=== PATIENT | female | born 1970 | race African-American/Black ===

== ENCOUNTER 2016-07-26 22:08 | Emergency (ER) | payer OTHER ==
[2016-07-26] MEDS ORDERED: Acetaminophen 325 MG TAB ONE (23:05)
[2016-07-26 23:25] LABS: Bilirubin Negative (Negative); Blood, Urine Trace (Negative); Glucose, Urine (Dipstick) Negative (Negative); Ketone, Urine Negative (Negative); Nitrite Negative (Negative); Protein, Urine (Dipstick) 30 mg/dL (Neg-Trace); Urobilinogen 0.2 mg/dL (0.2-1.0)
[2016-07-26 23:26] LABS: Bacteria/HPF None Seen HPF (None Seen); Squamous Epithelial 0-3 HPF (0-3); WBC/HPF None Seen HPF (0-3)
--- NOTE | 2016-07-27 00:22 | ERRECORD ---
[facility] EMERGENCY RECORD HPI UTI (23:15 MPUR) CHIEF COMPLAINT: Patient presents for evaluation of urinary tract infection signs or symptoms:, dysuria, frequency, urine odor. HISTORIAN: History provided by patient, 2 week of UTI sx, especially urgency. % days ago started having URI sx with headache, congestion, sore throat, Sx hace persisted. In addition lots of stress at work. 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 TIME COURSE: Gradual onset of symptoms, Symptoms are worsening. ASSOCIATED WITH FEMALE: No associated abdominal pain, Associated with chills, Associated with diarrhea, Associated with fever, Associated with nausea, Associated with night sweats. EXACERBATED BY: Patient's condition exacerbated by movement, Patient's condition exacerbated by urination, Patient's condition not exacerbated by walking. RELIEVED BY: Patient's condition relieved by nothing. ROS CONSTITUTIONAL: Historian reports chills, reports malaise. hot flashes, head ache. (23:28 MPUR) EYES: Historian denies eye pain. (23:27 MPUR) ENT: Historian reports dysphonia, reports sinus pain, reports sore throat, reports voice changes, denies rhinorrhea. (23:27 MPUR) CARDIOVASCULAR: Historian denies chest pain. (23:27 MPUR) RESPIRATORY: Historian denies cough. (23:27 MPUR) GI: Historian denies diarrhea, Historian denies vomiting. (23:27 MPUR) MUSCULOSKELETAL: Historian denies arthralgias. (23:27 MPUR) SKIN: Historian denies rash. (23:27 MPUR) NEUROLOGIC: Historian denies seizures. (23:27 MPUR) ENDOCRINE: Historian denies skin changes. (23:27 MPUR) HEMO/LYMPHATIC: Historian denies easy bruising. (23:27 MPUR) PAST MEDICAL HISTORY (22:28 KASA) MEDICAL HISTORY: Flu vaccine not up to date, Tetanus immunization up to date, Pneumococcal vaccine not up to date, Past medical history includes history of obesity. Pre hypertension. FEMALE SURGICAL HISTORY: Surgical history of tubal ligation. PSYCHIATRIC HISTORY: No previous psychiatric history. SOCIAL HISTORY: Lives at home, with family, Patient denies alcohol use, Patient denies drug use, Patient has no smoking history. FAMILY HISTORY: Notes: HTN, Renal Disease. &a-1R&a+25V*p+0X*[id number]*c202B*c15G*c2P*p-0X&a-25V&a+1R Name: Dylan Good : 1970 F45 MedRec: [id number] AcctNum: [id number] Prepared: MonJul 27, 2016 01:21 by Interface Page 1 of 3 pMD [facility] EMERGENCY RECORD KNOWN ALLERGIES No Known Drug Allergies CURRENT MEDICATIONS (22:24 KASA) meloxicam: TABLET : Strength - 7.5 mg : ORAL Patient Dose: unknown once a day.for knee pain. VITAL SIGNS VITAL SIGNS: BP: 150/93, Pulse: 98, Resp: 20, Temp: 99.3 (Oral), Pain: 8 (Intermittent), O2 sat: 99 on Room Air, Time: 07/26/2016 22:21. (22:21 KASA) BP: 141/83, Pulse: 78, Resp: 20, Pain: 6, O2 sat: 100 on Room Air, Time: 07/26/2016 23:23. (23:23 KASA) PHYSICAL EXAM CONSTITUTIONAL: Vital signs reviewed. (23:27 MPUR) HEAD: Head exam included findings of head atraumatic. (23:27 MPUR) EYES: Eye exam included findings of eyelids normal to inspection, Sclera normal. (23:27 MPUR) ENT: Nose exam normal, no nasal deformity, mucous membranes moist and congested. (23:27 MPUR) NECK: Neck exam included findings of normal range of motion, no meningeal signs, Neck supple, Trachea midline, no contusions. (23:27 MPUR) RESPIRATORY CHEST: Respiratory exam included findings of no respiratory distress, Breath sounds clear, no increased work of breathing, rate nl. (23:27 MPUR) CARDIOVASCULAR: Cardiovascular exam included findings of heart rate regular rate and rhythm, Heart sounds normal. (23:27 MPUR) ABDOMEN FEMALE: Abdominal exam included findings of abdomen tender, to the suprapubic region, mild intensity, Bowel sounds, hypoactive, no distension. (23:31 MPUR) LOWER EXTREMITY: no cyanosis, no edema. (23:27 MPUR) NEURO: Speech normal, Memory normal, alert, moving all extremities well. (23:27 MPUR) SKIN: Skin exam included findings of skin warm, dry, no rash. (23:27 MPUR) PSYCHIATRIC: Normal affect, Recent memory normal. (23:27 MPUR) MEDICATION ADMINISTRATION SUMMARY Drug Name: acetaminophen oral, Dose Ordered: 3 x 325 mg tab(s), Route: Oral, Status: Given, Time: 23:08 07/26/2016, Detailed record available in Medication Service section. &a-1R&a+25V*p+0X*[id number]*c202B*c15G*c2P*p-0X&a-25V&a+1R Name: Dylan Good : 1970 F45 MedRec: [id number] AcctNum: [id number] Prepared: MonJul 27, 2016 01:21 by Interface Page 2 of 3 pMD [facility] EMERGENCY RECORD DOCTOR NOTES TEXT: I have reviewed and agree with nurse's past medical, family, and social history as documented on chart. Pt's vital signs have been reviewed. (23:27 MPUR) Findings consistent with viral syndrome. In addition pt evidently under significant stress today at work. Urine maximally concentrated. Discussed treatment and need to increase fluids. (MonJul 27, 2016 01:12 MPUR) PROBLEM LIST No recorded problems DIAGNOSIS (23:48 MPUR) FINAL: PRIMARY: Viral syndrome. PRESCRIPTION (23:54 MPUR) Maxalt: TABLET : 10 mg : ORAL : Quantity: 1 Unit: Sublingual Route: ORAL Schedule: every 4 hours prn Dispense: 12 Unit: tab(s) May substitute. Refills: No Refills . NOTES: prn migraine headache No Refills. DISPOSITION PATIENT: Disposition Type: Discharge, Disposition: *Discharge Home. (23:48 MPUR) Patient left the department. (MonJul 27, 2016 00:13 SHOBHA) Chambers: SHOBHA=MARISOL Pérez, Sabina MPUR=MD Carolynn, Harpreet &a-1R&a+25V*p+0X*[id number]*c202B*c15G*c2P*p-0X&a-25V&a+1R Name: Dylan Good : 1970 F45 MedRec: [id number] AcctNum: [id number] Prepared: MonJul 27, 2016 01:21 by Interface Page 3 of 3 pMD MTDD
--- NOTE | 2016-07-27 00:24 | PICIS ---
[facility] EMERGENCY RECORD TRIAGE (22:23 KASA) TRIAGE NOTES: Headache for the past 4 days, sore throat that started today, "felt warm earlier but I don't know if I have a fever". (22:23 KASA) PATIENT: NAME: Dylan Good, AGE: 45, GENDER: female, : Sun 1970, TIME OF GREET: MonJul 26, 2016 22:10, PREFERRED LANGUAGE: Martiniquais, ETHNICITY: Not or , ECODE BILLING MAP: [facility], SSN: [id number], Zip Code: [address], KG WEIGHT: [phone], PHONE: , , , PERSON ID: [id number], PCP: None. (22:23 KASA) COMPLAINT: C/O ROBISON 4-5 DAYS,SORE THROAT,FEVERISH. (22:23 KASA) ADMISSION: URGENCY: 4 Non Urgent, ADMISSION SOURCE: Home, TRANSPORT: CAR, BED: ER -03. (22:23 KASA) ASSESSMENT: Assessment: throat red, injected, Symptoms began 07/26/2016, Additional Triage notes: States. (22:28 KASA) PAIN: Patient complains of pain described as, throbbing, on a scale 0-10 patient rates pain as 8, Location Headache, Pain is intermittent, Onset was 07/23/2016, Aggravating factors:, Aggravating factors include getting upset, No relieving factors, Notes: states she woke up this morning and it was throbbing, states pain comes and goes, Starts in the worship region and radiates back. (22:28 KASA) SIRS SCORING: Heart Rate 55-109 (0), Temp range 96.8-101.1 (0), respiratory rate 12-24 (0), Mental Status altered: no (0). (22:28 KASA) TRIAGE SCREENING: Patient denies suicidal ideation, Patient denies presence of domestic violence. (22:28 KASA) TREATMENTS IN PROGRESS: Treatments given Prehospital: [facility] Migraine 11 am; "tension headache OTC medicine" 2pm. (22:28 KASA) PROVIDERS: TRIAGE NURSE: Sabina Pérez RN. (22:23 KASA) VITAL SIGNS: BP 150/93, Pulse 98, Resp 20, Temp 99.3, (Oral), Pain 8, (Intermittent), O2 Sat 99, on Room Air, Time 07/26/2016 22:21. (22:21 KASA) PREVIOUS VISIT ALLERGIES: No Known Drug Allergies. (22:23 KASA) No Known Drug Allergies. (22:28 KASA) KNOWN ALLERGIES No Known Drug Allergies CURRENT MEDICATIONS (22:24 KASA) meloxicam: TABLET : Strength - 7.5 mg : ORAL Patient Dose: unknown once a day.for knee pain. VITAL SIGNS VITAL SIGNS: BP: 150/93, Pulse: 98, Resp: 20, Temp: 99.3 (Oral), Pain: 8 (Intermittent), O2 sat: 99 on Room Air, Time: 07/26/2016 22:21. (22:21 KASA) &a-1R&a+25V*p+0X*u0655A*c202B*c15G*c2P*p-0X&a-25V&a+1R Name: Dylan Good : 1970 F45 MedRec: [id number] AcctNum: [id number] Prepared: MonJul 27, 2016 01:27 by Interface Page 1 of [address] [facility] EMERGENCY RECORD BP: 141/83, Pulse: 78, Resp: 20, Pain: 6, O2 sat: 100 on Room Air, Time: 07/26/2016 23:23. (23:23 KASA) NURSING ASSESSMENT: ENT (22:28 KASA) CONSTITUTIONAL: Patient arrives ambulatory, Gait steady, History obtained from patient, Patient appears, uncomfortable, Patient cooperative, Patient alert, Oriented to person, place and time, Skin warm, Skin dry, Skin normal in color, Mucous membranes pink, Mucous membranes moist, Patient is well-groomed, Patient complains of Sore throat, ROBISON for the last 4 days, Headache for the past 4 days, sore throat that started today, "felt warm earlier but I don't know if I have a fever". ENT: Mouth and throat assessment findings include mouth, Back of throat red, injected, Mucous membranes pink, and moist, Able to swallow, Speech normal. RESPIRATORY/CHEST: Respiratory assessment findings include respiratory effort easy, Respirations regular, Conversing normally, Neck and chest exam findings include trachea midline, Chest expansion equal, Chest movement symmetrical, no signs of distress, Associated with cough, non-productive, no associated fever, Notes: "feels like being getting strangled" "like something is going down the wrong way" has to drink something to clear it. SAFETY: Side rails up, Cart/Stretcher in lowest position, Call light within reach, Hospital ID band on. NURSING ASSESSMENT: HEADACHE (22:32 KASA) HEADACHE: history of migraines, no associated aura, no associated nausea, no associated vomiting, Associated with phonophobia, Precipitating factors include stress, Notes: States she saw blurry spots, then the headache came on. Dizziness -feels like she is spinning. NEURO: Pupils equally round and reactive to light, Able to close eyes, Face symmetrical, no facial droop, no swelling, GCS:, Eye opening: (4) - Spontaneous, Verbal: (5) - Oriented/conversive, Motor: (6) - Obeys commands/Spontaneous, GCS Total: 15, Hand grasps equal, Upper extremity strength strong, no numbness to upper extremities. SAFETY: Side rails up, Cart/Stretcher in lowest position, Call light within reach, Hospital ID band on. NURSING PROCEDURE: DISCHARGE NOTE (23:58 KASA) DISCHARGE: Patient discharged to home, ambulating without assistance, driving self, unaccompanied, Summary of Care printed/ provided, Discharge instructions given to patient, Simple or moderate discharge teaching performed, . Educated and provided handout regarding diagnosis of: Viral Syndrome Follow up with PCP in 2-4 days. May return to work in 2 days., Prescriptions given and &a-1R&a+25V*p+0X*k9228U*c202B*c15G*c2P*p-0X&a-25V&a+1R Name: Dylan Good Claudy : 1970 F45 MedRec: [id number] AcctNum: [id number] Prepared: MonJul 27, 2016 01:27 by Interface Page 2 of [address] [facility] EMERGENCY RECORD instructions on side effects given, Name of prescription(s) given: Albin, Above person(s) verbalized understanding of discharge instructions and follow-up care, Patient treated and evaluated by physician. BELONGINGS: Belongings and valuables with patient upon arrival to the Emergency Department include:, Belongings and valuables with patient at time of discharge include:, Belongings remain with patient, Valuables remain with patient. SAFETY: Side rails up, Cart/Stretcher in lowest position, Call light within reach, Hospital ID band on. NURSING PROCEDURE: ENT (22:40 KASA) PATIENT IDENTIFIER: Patient actively involved in identification process, Patient's identity verified by patient stating name, Patient's identity verified by patient stating date. ENT: Throat swab collected, labeled in the presence of the patient and sent to the lab for testing of, rapid strep, collected by MARISOL Muhammad. SAFETY: Side rails up, Cart/Stretcher in lowest position, Call light within reach, Hospital ID band on. NURSING PROCEDURE: NURSE NOTES NURSES NOTES: Notes: Upon entering the room patient sitting up in bed, talking cell phone. Daughter at bedside. (23:06 KASA) Patient examined by physician. (23:12 KASA) Patient assisted to bathroom with steady gait, Patient in no apparent distress. (23:16 KASA) NURSING PROCEDURE: TEACHING (23:54 KASA) TEACHING: Simple or moderate teaching performed, by MARISOL Dumont, Viral Syndrome [Adult] A viral illness may cause a number of symptoms. The symptoms depend on the part of the body that the virus affects. If it settles in the nose/throat/lungs, it may cause cough, sore throat, congestion and sometimes headache. If it settles in the stomach and intestinal tract, it may cause vomiting and diarrhea. Sometimes, it causes vague symptoms like "aching all over," feeling tired, loss of appetite, or fever. A viral illness usually lasts from 1-2 weeks and sometimes longer. In some cases, a more serious infection can look like a viral syndrome in the first few days of the illness. Repeat exams and further tests are needed to know the difference. Therefore, it is important to watch for the warning signs listed below. Home Care: If symptoms are severe, rest at home for the first 2-3 days. Stay away from cigarette smoke (yours or other peoples). You may use Tylenol (acetaminophen) or ibuprofen (Motrin, Advil) for fever, muscle aching and headache, unless another medicine was prescribed for this. [ NOTE : If you have chronic liver or kidney disease or ever had a stomach ulcer or GI bleeding, talk with your &a-1R&a+25V*p+0X*q6401D*c202B*c15G*c2P*p-0X&a-25V&a+1R Name: Dylan Good : 1970 F45 MedRec: [id number] AcctNum: [id number] Prepared: MonJul 27, 2016 01:27 by Interface Page 3 of [address] [facility] EMERGENCY RECORD doctor before using these medicines.] (Aspirin should never be used in anyone under 18 years of age who is ill with a fever. It may cause severe liver damage.) Your appetite may be poor, so a light diet is fine. Avoid dehydration by drinking 8-12 eight-ounce glasses of fluids per day. This may include water, orange juice and lemonade, apple, grape and cranberry juice, clear fruit drinks, electrolyte replacement and sports drinks, decaffeinated teas and coffee. Aant-zcc-ymwchgg remedies will not shorten the length of the illness but may be helpful for the following symptoms: cough (Robitussin DM); sore throat (Chloraseptic lozenges or spray); nasal and sinus congestion (Actifed or Sudafed). [NOTE: Do not use decongestants if you have high blood pressure.]. Follow Up with your doctor as advised if you do not improve over the next week. Get Prompt Medical Attention if any of the following occur: Cough with lots of colored sputum (mucus) or blood in your sputum Chest pain, shortness of breath, wheezing or difficulty breathing Severe headache; face, neck or ear pain Severe constant right-sided lower abdominal pain Continued vomiting (cant keep liquids down) Frequent diarrhea (more than 5 times a day); blood (red or black color) or mucus in diarrhea Feeling weak, dizzy, or like you are going to faint Extreme thirst Fever of 100.4F (38C) oral or higher, not better with fever medication Convulsion PATIENT &/OR CAREGIVER VERBALIZED UNDERSTANDING OF THE TEACHING PROVIDED AND WAS ABLE TO DEMONSTRATE TEACHING EVIDENCED BY TEACH BACK. Simple or moderate teaching performed, by MARISOL Muhammad, Dehydration [Adult] Dehydration occurs when the body loses too much fluid. This may be the result of vomiting a lot or from diarrhea, profuse sweating or a high fever. It may also occur if you dont drink enough fluid when youre sick. Misuse of diuretics (water pills) can also be a cause. Symptoms include thirst and feeling dizzy, weak, fatigued, or very drowsy. The diet described below is usually enough to treat most cases. Sometimes medicine is also needed. Home Care: Adults should drink at least 12 eight-ounce glasses of fluid per day to correct dehydration. The fluid may include water, orange juice and lemonade, apple, grape and cranberry juice, clear fruit drinks, electrolyte replacement and sports drinks, and teas and coffee without caffeine. If you have fever, muscle aching or headache from a viral syndrome, you may use Tylenol (acetaminophen) or ibuprofen (Motrin, Advil), unless another medicine was prescribed for this. [ NOTE : If you have chronic liver &a-1R&a+25V*p+0X*d7562P*c202B*c15G*c2P*p-0X&a-25V&a+1R Name: Dylan Good : 1970 F45 MedRec: [id number] AcctNum: [id number] Prepared: MonJul 27, 2016 01:27 by Interface Page 4 of [address] [facility] EMERGENCY RECORD or kidney disease or ever had a stomach ulcer or GI bleeding, talk with your doctor before using these medicines.] (If under 18 years old, do not use aspirin for fever. There is a chance of severe liver injury.) Follow Up with your doctor or this facility if you do not improve over the next 24-48 hours. Get Prompt Medical Attention if any of the following occur: Continued vomiting (cant keep liquids down) Frequent diarrhea (more than 5 times a day); blood (red or black color) or mucus in diarrhea Blood in vomit or stool Swollen abdomen or increasing abdominal pain Weakness, dizziness or fainting Unusually drowsy or confused Reduced urine output or extreme thirst Fever of 100.4F (38C) oral or higher, not better with fever medication PATIENT &/OR CAREGIVER VERBALIZED UNDERSTANDING OF THE TEACHING PROVIDED AND WAS ABLE TO DEMONSTRATE TEACHING EVIDENCED BY TEACH BACK. Simple or moderate teaching performed, by MARISOL Muhammad, Prescriptions given and instructions on side effects given, Name of prescription(s) given: MAXALT (RIZATRIPTAN) is used to treat migraines with or without aura. An aura is a strange feeling or visual disturbance that warns you of an attack. It is not used to prevent migraines. SIDE EFFECTS THAT YOU SHOULD REPORT TO YOUR DOCTOR OR HEALTH WOOL FLEECE SORTER SOON POSSIBLE: allergic reactions like skin rash, itching or hives, swelling of the face, lips, or tongue, FAST, SLOW, OR IRREGULAR HEART BEAT, increased or decreased blood pressure, seizures, severe stomach pain and cramping, bloody diarrhea, signs and symptoms of a blood clot such as breathing problems; changes in vision; chest pain; severe, sudden headache; pain, swelling, warmth in the leg; trouble speaking; sudden numbness or weakness of the face, arm or leg, tingling, pain, or numbness in the face, hands, or feet. SIDE EFFECTS THAT USUALLY DO NOT REQUIRE MEDICAL ATTENTION (REPORT TO YOUR DOCTOR OR HEALTH WOOL FLEECE SORTER IF THEY CONTINUE OR ARE BOTHERSOME): drowsiness, dry mouth, feeling warm, flushing, or redness of the face, headache, muscle cramps, pain, nausea, vomiting, unusually weak or tired., Above person(s) verbalized understanding of teaching given, Notes: Additional information about the medication you were given and/or prescribed. Only take this medicine for a migraine headache. Take it if you get warning symptoms or at the start of a migraine attack. It is not for regular use to prevent migraine attacks. You may get DROWSY OR DIZZY. Do not drive, use machinery, or do anything that needs mental alertness until you know how this medicine affects you. To reduce dizzy or fainting spells, do not sit or stand up quickly, especially if you are an older patient. Alcohol can increase drowsiness, dizziness and flushing. AVOID ALCOHOLIC DRINKS. SMOKING CIGARETTES MAY INCREASE THE RISK OF HEART-RELATED SIDE &a-1R&a+25V*p+0X*q7760I*c202B*c15G*c2P*p-0X&a-25V&a+1R Name: Dylan Good : 1970 F45 MedRec: [id number] AcctNum: [id number] Prepared: MonJul 27, 2016 01:27 by Interface Page 5 of 11 pMD [facility] EMERGENCY RECORD EFFECTS FROM USING THIS MEDICINE. IF YOU TAKE MIGRAINE MEDICINES FOR 10 OR MORE DAYS A MONTH, YOUR MIGRAINES MAY GET WORSE. KEEP A DIARY OF HEADACHE DAYS AND MEDICINE USE. CONTACT YOUR HEALTHCARE PROFESSIONAL IF YOUR MIGRAINE ATTACKS OCCUR MORE FREQUENTLY. How to take: Take this medicine by mouth. Follow the directions on the prescription label. This medicine is taken at the first symptoms of a migraine. It is not for everyday use. Leave the tablet in the foil package until you are ready to take it. Do not push the tablet through the blister pack. Peel open the blister pack with dry hands and place the tablet on your tongue. The tablet will dissolve rapidly and be swallowed in your saliva. It is not necessary to drink any water to take this medicine. If your migraine headache returns after one dose, you can take another dose as directed. You must LEAVE AT LEAST 2 HOURS BETWEEN DOSES, and DO NOT TAKE MORE THAN 30 MG TOTAL IN 24 HOURS. If there is no improvement at all after the first dose, do not take a second dose without talking to your doctor or health rn patient care. DO NOT TAKE YOUR MEDICINE MORE OFTEN THAN DIRECTED. Talk to your calciner operator regarding the use of this medicine in children. While this drug may be prescribed for children as young as 6 years for selected conditions, precautions do apply. Missed dose: This does not apply; this medicine is not for regular use. Keep out of the reach of children. Store at room temperature between 15 and 30 degrees C (59 and 86 degrees F). Protect from light and moisture. Throw away any unused medicine after the expiration date. Let your health care provided know if you have any of these conditions: bowel disease or colitis diabetes family history of heart disease fast or irregular heart beat heart or blood vessel disease, angina (chest pain), or previous heart attack high blood pressure high cholesterol history of stroke, transient ischemic attacks (TIAs or mini-strokes), or intracranial bleeding kidney or liver disease overweight poor circulation postmenopausal or surgical removal of uterus and ovaries an unusual or allergic reaction to rizatriptan, other medicines, foods, dyes, or preservatives or trying to get breast-feeding What may interact with this medicine? Do not take this medicine with any of the following medicines: &a-1R&a+25V*p+0X*l4892N*c202B*c15G*c2P*p-0X&a-25V&a+1R Name: Dylan Good : 1970 F45 MedRec: [id number] AcctNum: [id number] Prepared: MonJul 27, 2016 01:27 by Interface Page 6 of [address] [facility] EMERGENCY RECORD amphetamine, dextroamphetamine or cocaine dihydroergotamine, ergotamine, ergoloid mesylates, methysergide, or ergot-type medication - do not take within 24 hours of taking rizatriptan feverfew MAOIs like Carbex, Eldepryl, Marplan, Nardil, and Parnate - do not take rizatriptan within 2 weeks of stopping MAOI therapy. other migraine medicines like almotriptan, eletriptan, naratriptan, sumatriptan, zolmitriptan - do not take within 24 hours of taking rizatriptan tryptophan This medicine may also interact with the following medications: medicines for mental depression, anxiety or mood problems propranolol PATIENT &/OR CAREGIVER VERBALIZED UNDERSTANDING OF THE TEACHING PROVIDED AND WAS ABLE TO DEMONSTRATE TEACHING EVIDENCED BY TEACH BACK. ORDER DETAILS Order Name: Strep Group A Screen, Status: Active, Time: 22:42 07/26/2016, User: SHOBHA, - Ordered for: MD Pradhan Marcus, - Entered by: MARISOL Pérez Kathy - Tue Jul 26, 2016 22:42, - Quantity: 1, Order Name: Urinalysis with Microscopic, Status: Active, Time: 23:15 07/26/2016, User: DEYSI, - Ordered for: MD Pradhan Marcus, - Entered by: MD Pradhan Marcus - Tue Jul 26, 2016 23:15, - Quantity: 1. MEDICATION ADMINISTRATION SUMMARY Drug Name: acetaminophen oral, Dose Ordered: 3 x 325 mg tab(s), Route: Oral, Status: Given, Time: 23:08 07/26/2016, Detailed record available in Medication Service section. MEDICATION SERVICE (23:08 DEYSI) acetaminophen oral: Order: acetaminophen oral (acetaminophen) - Dose: 3 x 325 mg tab(s) : Oral Schedule: Now Ordered by: Harpreet Pradhan MD Entered by: Harpreet Pradhan MD Jul 26, 2016 22:58 , Acknowledged by: Sabina Pérez RN Jul 26, 2016 23:08 Documented as given by: Sabina Pérez RN Jul 26, 2016 23:08 Patient, Medication, Dose, Route and Time verified prior to administration. Amount given: 975 mg, Site: Medication administered P.O., Correct patient, time, route, dose and medication confirmed prior to administration, Patient advised of actions and side-effects prior to &a-1R&a+25V*p+0X*d9497N*c202B*c15G*c2P*p-0X&a-25V&a+1R Name: Dylan Good : 1970 F45 MedRec: [id number] AcctNum: [id number] Prepared: MonJul 27, 2016 01:27 by Interface Page 7 of [address] [facility] EMERGENCY RECORD administration, Allergies confirmed and medications reviewed prior to administration, Patient in position of comfort, Side rails up, Cart in lowest position, Family at bedside. HPI UTI (23:15 MPUR) CHIEF COMPLAINT: Patient presents for evaluation of urinary tract infection signs or symptoms:, dysuria, frequency, urine odor. HISTORIAN: History provided by patient, 2 week of UTI sx, especially urgency. % days ago started having URI sx with headache, congestion, sore throat, Sx hace persisted. In addition lots of stress at work. 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 TIME COURSE: Gradual onset of symptoms, Symptoms are worsening. ASSOCIATED WITH FEMALE: No associated abdominal pain, Associated with chills, Associated with diarrhea, Associated with fever, Associated with nausea, Associated with night sweats. EXACERBATED BY: Patient's condition exacerbated by movement, Patient's condition exacerbated by urination, Patient's condition not exacerbated by walking. RELIEVED BY: Patient's condition relieved by nothing. ROS CONSTITUTIONAL: Historian reports chills, reports malaise. hot flashes, head ache. (23:28 MPUR) EYES: Historian denies eye pain. (23:27 MPUR) ENT: Historian reports dysphonia, reports sinus pain, reports sore throat, reports voice changes, denies rhinorrhea. (23:27 MPUR) CARDIOVASCULAR: Historian denies chest pain. (23:27 MPUR) RESPIRATORY: Historian denies cough. (23:27 MPUR) GI: Historian denies diarrhea, Historian denies vomiting. (23:27 MPUR) MUSCULOSKELETAL: Historian denies arthralgias. (23:27 MPUR) SKIN: Historian denies rash. (23:27 MPUR) NEUROLOGIC: Historian denies seizures. (23:27 MPUR) ENDOCRINE: Historian denies skin changes. (23:27 MPUR) HEMO/LYMPHATIC: Historian denies easy bruising. (23:27 MPUR) PAST MEDICAL HISTORY (: KASA) MEDICAL HISTORY: Flu vaccine not up to date, Tetanus immunization up to date, Pneumococcal vaccine not up to date, Past medical history includes history of obesity. Pre hypertension. FEMALE SURGICAL HISTORY: Surgical history of tubal ligation. PSYCHIATRIC HISTORY: No previous psychiatric history. SOCIAL HISTORY: Lives at home, with family, Patient denies &a-1R&a+25V*p+0X*c8499H*c202B*c15G*c2P*p-0X&a-25V&a+1R Name: Dylan Good : 1970 F45 MedRec: [id number] AcctNum: [id number] Prepared: MonJul 27, 2016 01:27 by Interface Page 8 of [address] [facility] EMERGENCY RECORD alcohol use, Patient denies drug use, Patient has no smoking history. FAMILY HISTORY: Notes: HTN, Renal Disease. PHYSICAL EXAM CONSTITUTIONAL: Vital signs reviewed. (23:27 MPUR) HEAD: Head exam included findings of head atraumatic. (23:27 MPUR) EYES: Eye exam included findings of eyelids normal to inspection, Sclera normal. (23:27 MPUR) ENT: Nose exam normal, no nasal deformity, mucous membranes moist and congested. (23:27 MPUR) NECK: Neck exam included findings of normal range of motion, no meningeal signs, Neck supple, Trachea midline, no contusions. (23:27 MPUR) RESPIRATORY CHEST: Respiratory exam included findings of no respiratory distress, Breath sounds clear, no increased work of breathing, rate nl. (23:27 MPUR) CARDIOVASCULAR: Cardiovascular exam included findings of heart rate regular rate and rhythm, Heart sounds normal. (23:27 MPUR) ABDOMEN FEMALE: Abdominal exam included findings of abdomen tender, to the suprapubic region, mild intensity, Bowel sounds, hypoactive, no distension. (23:31 MPUR) LOWER EXTREMITY: no cyanosis, no edema. (23:27 MPUR) NEURO: Speech normal, Memory normal, alert, moving all extremities well. (23:27 MPUR) SKIN: Skin exam included findings of skin warm, dry, no rash. (23:27 MPUR) PSYCHIATRIC: Normal affect, Recent memory normal. (23:27 MPUR) LAB INTERPRETATION (23:27 MPUR) INTERPRETATION: No significant lab abnormalities except as noted above. EVENTS TRANSFER: Triage to Emergency Emergency Room -03. (MonJul 26, 2016 22:23 KASA) Removed from Emergency Emergency Room -03. (MonJul 27, 2016 00:13 KASA) DOCTOR NOTES TEXT: I have reviewed and agree with nurse's past medical, family, and social history as documented on chart. Pt's vital signs have been reviewed. (23:27 MPUR) Findings consistent with viral syndrome. In addition pt evidently under significant stress today at work. Urine maximally concentrated. Discussed treatment and need to increase fluids. (MonJul 27, 2016 01:12 MPUR) &a-1R&a+25V*p+0X*w9221D*c202B*c15G*c2P*p-0X&a-25V&a+1R Name: Dylan Good : 1970 F45 MedRec: [id number] AcctNum: [id number] Prepared: MonJul 27, 2016 01:27 by Interface Page 9 of [address] [facility] EMERGENCY RECORD PROBLEM LIST No recorded problems DIAGNOSIS (23:48 MPUR) FINAL: PRIMARY: Viral syndrome. DISPOSITION PATIENT: Disposition Type: Discharge, Disposition: *Discharge Home. (23:48 MPUR) Patient left the department. (MonJul 27, 2016 00:13 KASA) INSTRUCTION (23:51 MPUR) DISCHARGE: VIRAL SYNDROME (ADULT), DEHYDRATION (6Y-ADULT). FOLLOWUP: [facility], Clinic, [address] [facility], [facility] , . SPECIAL: Increase fluids intake. Tylenol or Advil for Pain or fever. Rest tomorrow. Follow-up with your PCP in 2-4 days Return to work in 2 days. PRESCRIPTION (23:54 MPUR) Maxalt: TABLET : 10 mg : ORAL : Quantity: 1 Unit: Sublingual Route: ORAL Schedule: every 4 hours prn Dispense: 12 Unit: tab(s) May substitute. Refills: No Refills . NOTES: prn migraine headache No Refills. IMAGING (MonJul 27, 2016 01:16 KASA) *DISCHARGE INSTRUCTIONS RECEIPT: Image captured from scanner. *SUPPLY CHARGE SHEET: Image captured from scanner. ADMIN (MonJul 27, 2016 01:14 MPUR) DIGITAL SIGNATURE: MD Pradhan Marcus. RESULTS (23:32 MPUR) LABORATORY: Urinalysis with Microscopic Collection DT: MonJul 26, 2016 23:22, Color Yellow , Range (Yellow), Clarity Clear , Range (Clear), *Specific Jackson, Urine 1.040 - H , Range (1.002-1.036), pH, Urine 6.0 , Range (5.0-9.0), Leukocyte Negative , Range (Negative), Nitrite Negative , Range (Negative), *Protein, Urine (Dipstick) 30 - H mg/dL, Range (Neg-Trace), Glucose, Urine (Dipstick) Negative mg/dL, Range (Negative), Ketone, Urine Negative mg/dL, Range (Negative), Urobilinogen 0.2 mg/dL, Range (0.2-1.0), &a-1R&a+25V*p+0X*r8216G*c202B*c15G*c2P*p-0X&a-25V&a+1R Name: Dylan Good : 1970 F45 MedRec: [id number] AcctNum: [id number] Prepared: MonJul 27, 2016 01:27 by Interface Page 10 of [address] [facility] EMERGENCY RECORD Bilirubin Negative , Range (Negative), *Blood, Urine Trace - H , Range (Negative), RBC/HPF 4-6 HPF, Range (0-3), WBC/HPF None Seen HPF, Range (0-3), Squamous Epithelial 0-3 HPF, Range (0-3), Bacteria/HPF None Seen HPF, Range (None Seen). MICROBIOLOGY: Strep Group A Screen: [id number] Collection DT: [place] Jul 26, 2016 22:46, See comment below , @ ER ROOM#: [id number] Source: Throat Spec Desc: PENDING, Strep A Negative CDC recommends , confirmation by , culture on all , negative , Strep negative line 1 Group A , Streptococcus rapid , screens. Please , order , Strep negative line 2 a throat culture if , clinically , indicated. , Rapid Strep Screen:Throat Negative . Chambers: SHOBHA=MARISOL Pérez, Sabina JO=MD Carolynn, Harpreet &a-1R&a+25V*p+0X*p2241Y*c202B*c15G*c2P*p-0X&a-25V&a+1R Name: Dylan Good : 1970 F45 MedRec: [id number] AcctNum: [id number] Prepared: MonJul 27, 2016 01:27 by Interface Page 11 of 11 pMD MTDD
== END 2016-07-26 23:58 | disposition home or self-care (01) ==
LOC: NAV ERS 22:08
DX: B34.9 Viral infection, unspecified (principal)
CPT/HCPCS: 81001; 87430; 99283

== ENCOUNTER 2016-08-23 15:10 | Emergency (ER) | payer OTHER ==
--- NOTE | 2016-08-23 16:13 | ERRECORD ---
[facility] EMERGENCY RECORD HPI URI (15:58 AGRE) CHIEF COMPLAINT: Patient presents for evaluation of nasal congestion, Patient presents for evaluation of cough. HISTORIAN: History provided by patient, NASAL CONGESTION AND COUGH FOR ONE WEEK. SEEN IN ED AND TOLD URI AND IT WOULD RUN ITS COURSE. HOWEVER IS WORST, COUGHING AND UNABLE TO SLEEP, GREEN NASAL DRAINAGE. TAKING NYQUIL FOR ONE WEEK AND NOT GETTING BETTER. NO FEVER OR CHILLS. NO OTHER SYMPTOMS. LOCATION: No localizing symptoms. QUALITY: Pain is dull in nature, described as aching. SEVERITY: Maximum severity of symptoms mild, Currently there are no symptoms. TIME COURSE: Gradual onset of symptoms, Symptoms are worsening. ASSOCIATED WITH: No associated chest pain, No associated chills, No associated fever, No associated headache, No associated neck pain, No associated shortness of breath, Denies any other complaints. EXACERBATED BY: Patient's condition exacerbated by nothing. RELIEVED BY: Patient's condition relieved by nothing. ROS (15:59 AGRE) CONSTITUTIONAL: Historian denies chills, denies fever, denies lethargy, denies malaise. EYES: Historian denies eye pain, denies eye redness. ENT: Historian denies otalgia, denies otorrhea, reports rhinorrhea, denies sinus pain, denies sore throat. CARDIOVASCULAR: Historian denies chest pain, denies dyspnea on exertion. RESPIRATORY: Historian denies cough, denies shortness of breath. GI: Historian denies abdominal pain, denies nausea, denies vomiting. MUSCULOSKELETAL: Historian denies back pain, denies neck pain. SKIN: Negative skin review of systems, Historian denies skin changes, denies skin lesions. NEUROLOGIC: Historian denies headache, denies mental status changes. PSYCHIATRIC: Negative psychiatric review of systems, Historian denies anxiety. PAST MEDICAL HISTORY (15:32 EPIE) MEDICAL HISTORY: Notes: Anemia, Past medical history includes history of hypertension, Flu vaccine not up to date, Tetanus immunization up to date, Pneumococcal vaccine not up to date, Past medical history includes history of obesity. FEMALE SURGICAL HISTORY: Surgical history of tubal ligation. PSYCHIATRIC HISTORY: no history of suicidal ideations, No history of homicidal ideations, No previous psychiatric history. SOCIAL HISTORY: Lives at home, with family, Patient denies alcohol use, Patient denies drug use, Patient has no smoking &a-1R&a+25V*p+0X*u0590X*c202B*c15G*c2P*p-0X&a-25V&a+1R Name: Dylan Good : 1970 F45 MedRec: [id number] AcctNum: [id number] Prepared: MonAug 23, 2016 16:08 by Interface Page 1 of 3 pMD [facility] EMERGENCY RECORD history. FAMILY HISTORY: Notes: HTN, Renal Disease. KNOWN ALLERGIES No Known Drug Allergies CURRENT MEDICATIONS (15:31 EPIE) meloxicam: TABLET : Strength - 7.5 mg : ORAL Patient Dose: unknown once a day.for knee pain. amLODIPine: TABLET : Strength - 10 mg : ORAL Patient Dose: UNK. VITAL SIGNS (15:28 EPIE) VITAL SIGNS: BP: 141/91, Pulse: 91, Resp: 20 (Non-Labored), Temp: 98.4 (Oral), O2 sat: 98 on Room Air, Time: 08/23/2016 15:28. PHYSICAL EXAM CONSTITUTIONAL: Vital signs reviewed, Patient afebrile, Patient appears non toxic, Patient appears pain free, Patient alert and oriented to person, place and time, NURSES NOTES REVIEWED. (16:00 AGRE) HEAD: Head exam included findings of head atraumatic, normocephalic. (16:00 AGRE) EYES: Eye exam included findings of eyelids normal to inspection, Extraocular muscles intact, Conjunctiva normal, Sclera normal. (16:00 AGRE) ENT: Ear exam included findings of, left external ear normal, right external ear normal, tympanic membrane injected on the left, tympanic membrane normal on the right, Nose exam normal, No turbinate mucosa discharge, ERYTHEMA AND SWELLING OF THE TURBINATES BILATERALLY, Pharynx exam normal, Uvula exam normal, Tonsil exam normal, Mouth exam normal, Maxillary sinuses with, tenderness bilaterally. (16:00 AGRE) NECK: Neck exam included findings of normal range of motion, no meningeal signs, no cervical adenopathy, no tenderness. (16:00 AGRE) RESPIRATORY CHEST: Respiratory exam included findings of no respiratory distress, Breath sounds clear, No wheezing, No rales, No rhonchi, Breath sounds not diminished, Chest exam included findings of chest movement symmetrical. (16:00 AGRE) CARDIOVASCULAR: Cardiovascular assessment normal, Cardiovascular exam included findings of heart rate regular rate and rhythm, Heart sounds normal. (16:01 AGRE) BACK: Back exam included findings of normal inspection, range of motion normal. (16:00 AGRE) UPPER EXTREMITY: Upper extremity exam included findings of inspection normal, Range of motion normal. (16:00 AGRE) LOWER EXTREMITY: Lower extremity exam included findings of inspection normal, Range of motion normal. (16:00 AGRE) &a-1R&a+25V*p+0X*g8639S*c202B*c15G*c2P*p-0X&a-25V&a+1R Name: Dylan Good : 1970 F45 MedRec: [id number] AcctNum: [id number] Prepared: MonAug 23, 2016 16:08 by Interface Page 2 of 3 pMD [facility] EMERGENCY RECORD NEURO: Neuro exam findings include patient oriented to person, place and time, Speech normal, Gait normal, Memory normal, Cranial nerves intact, no focal motor deficits. (16:00 AGRE) SKIN: Skin exam included findings of skin warm, dry, and normal in color. (16:00 AGRE) PSYCHIATRIC: Psychiatric exam normal, Normal affect. (16:00 AGRE) DOCTOR NOTES (16:02 AGRE) TEXT: DISCUSSED WITH PATIENT FINDINGS ON EXAM, MANAGEMENT OF HER SINUS INFECTION, NEED FOR FOLLOW UP. SHE EXPRESSED UNDERSTANDING AND AGREEMENT. PATIENT STATUS: Patient has improved since arrival to emergency department. PATIENT PLAN: The patient will be discharged. PROBLEM LIST No recorded problems DIAGNOSIS (15:56 AGRE) FINAL: PRIMARY: SINUSITIS. PRESCRIPTION (15:56 AGRE) Augmentin: TABLET : 875 mg-125 mg : ORAL : Quantity: 1 Unit: tab(s) Route: ORAL Schedule: every 12 hours Dispense: 20 Unit: tab(s) May substitute. Refills: No Refills . NOTES: No Refills. DISPOSITION PATIENT: Disposition Type: Discharge, Disposition: *Discharge Home, Condition: Good. (15:56 AGRE) Patient left the department. (16:03 EPIE) Chambers: AGRE=MD Aureliano, Lauro RIVERA=Olivo, RN, Mariaa &a-1R&a+25V*p+0X*k9921J*c202B*c15G*c2P*p-0X&a-25V&a+1R Name: FlorentinoDylan : 1970 F45 MedRec: [id number] AcctNum: [id number] Prepared: [place] Aug 23, 2016 16:08 by Interface Page 3 of 3 pMD MTDD
--- NOTE | 2016-08-23 16:21 | PICIS ---
[facility] EMERGENCY RECORD TRIAGE (15:30 EPIE) TRIAGE NOTES: Pt reports congestion for over a week. Medications not working. (15:30 EPIE) PATIENT: NAME: Dylan Good, AGE: 45, GENDER: female, : Sun 1970, TIME OF GREET: MonAug 23, 2016 15:11, PREFERRED LANGUAGE: Malian, ETHNICITY: Not or , ECODE BILLING MAP: [facility], SSN: [id number], Zip Code: [address], KG WEIGHT: 122.47, PHONE: , , , PERSON ID: [id number], PCP: Juliann PIERCE JAIME. (15:30 EPIE) COMPLAINT: COLD,CONGESTION. (15:30 EPIE) ADMISSION: URGENCY: 4 Non Urgent, ADMISSION SOURCE: Home, TRANSPORT: CAR, BED: TRIAGE. (15:30 EPIE) TRIAGE SCREENING: Patient denies suicidal ideation, Patient denies presence of domestic violence. (15:32 EPIE) TREATMENTS IN PROGRESS: Treatments given Prehospital: none. (15:32 EPIE) PROVIDERS: TRIAGE NURSE: Mariaa Olivo RN. (15:30 EPIE) VITAL SIGNS: BP 141/91, Pulse 91, Resp 20, (Non-Labored), Temp 98.4, (Oral), O2 Sat 98, on Room Air, Time 08/23/2016 15:28. (15:28 EPIE) PREVIOUS VISIT ALLERGIES: No Known Drug Allergies. (15:30 EPIE) No Known Drug Allergies. (15:32 EPIE) KNOWN ALLERGIES No Known Drug Allergies CURRENT MEDICATIONS (15:31 EPIE) meloxicam: TABLET : Strength - 7.5 mg : ORAL Patient Dose: unknown once a day.for knee pain. amLODIPine: TABLET : Strength - 10 mg : ORAL Patient Dose: UNK. VITAL SIGNS (15:28 EPIE) VITAL SIGNS: BP: 141/91, Pulse: 91, Resp: 20 (Non-Labored), Temp: 98.4 (Oral), O2 sat: 98 on Room Air, Time: 08/23/2016 15:28. NURSING ASSESSMENT: ENT (15:41 EPIE) CONSTITUTIONAL: Patient arrives ambulatory, Gait steady, History obtained from patient, Patient appears comfortable, Patient cooperative, Patient alert, Oriented to person, place and time, Skin warm, Skin dry, Skin normal in color, Mucous membranes pink, Mucous membranes moist, Patient is well-groomed, Pt reports congestion for over a week. Medications not working. PAIN: pressure pain, sinus, Onset of pain 08/23/2016 15:42, constant, on a scale 0-10 patient rates pain as 5. ENT: Nasal assessment findings include nose normal to inspection, &a-1R&a+25V*p+0X*l2346I*c202B*c15G*c2P*p-0X&a-25V&a+1R Name: Dylan Good : 1970 F45 MedRec: [id number] AcctNum: [id number] Prepared: MonAug 23, 2016 16:15 by Interface Page 1 of 5 pMD [facility] EMERGENCY RECORD Sinuses normal, Nasal mucosa normal, Congestion, bilaterally, Mouth and throat assessment findings include mouth inspection normal, Uvula normal, Tonsils normal, Mucous membranes pink, and moist, Able to swallow, Speech normal, no associated fever. RESPIRATORY/CHEST: Breath sounds clear, Respiratory assessment findings include respiratory effort easy, Respirations regular, Conversing normally, Neck and chest exam findings include trachea midline, Chest expansion equal, Chest movement symmetrical, Associated with cough, productive of, green sputum. NURSING PROCEDURE: DISCHARGE NOTE (16:02 EPIE) DISCHARGE: Patient discharged to home, ambulating without assistance, driving self, unaccompanied, Summary of Care printed/ provided, Discharge instructions given to patient, Simple or moderate discharge teaching performed, Prescriptions given and instructions on side effects given, Name of prescription(s) given: augmentin, Above person(s) verbalized understanding of discharge instructions and follow-up care. BELONGINGS: Belongings and valuables with patient upon arrival to the Emergency Department include:, Belongings and valuables with patient at time of discharge include:, Belongings remain with patient, Valuables remain with patient. HPI URI (15:58 AGRE) CHIEF COMPLAINT: Patient presents for evaluation of nasal congestion, Patient presents for evaluation of cough. HISTORIAN: History provided by patient, NASAL CONGESTION AND COUGH FOR ONE WEEK. SEEN IN ED AND TOLD URI AND IT WOULD RUN ITS COURSE. HOWEVER IS WORST, COUGHING AND UNABLE TO SLEEP, GREEN NASAL DRAINAGE. TAKING NYQUIL FOR ONE WEEK AND NOT GETTING BETTER. NO FEVER OR CHILLS. NO OTHER SYMPTOMS. LOCATION: No localizing symptoms. QUALITY: Pain is dull in nature, described as aching. SEVERITY: Maximum severity of symptoms mild, Currently there are no symptoms. TIME COURSE: Gradual onset of symptoms, Symptoms are worsening. ASSOCIATED WITH: No associated chest pain, No associated chills, No associated fever, No associated headache, No associated neck pain, No associated shortness of breath, Denies any other complaints. EXACERBATED BY: Patient's condition exacerbated by nothing. RELIEVED BY: Patient's condition relieved by nothing. ROS (15:59 AGRE) CONSTITUTIONAL: Historian denies chills, denies fever, denies lethargy, denies malaise. EYES: Historian denies eye pain, denies eye redness. ENT: Historian denies otalgia, denies otorrhea, reports &a-1R&a+25V*p+0X*v7851G*c202B*c15G*c2P*p-0X&a-25V&a+1R Name: Dylan Good : 1970 F45 MedRec: [id number] AcctNum: [id number] Prepared: MonAug 23, 2016 16:15 by Interface Page 2 of 5 pMD [facility] EMERGENCY RECORD rhinorrhea, denies sinus pain, denies sore throat. CARDIOVASCULAR: Historian denies chest pain, denies dyspnea on exertion. RESPIRATORY: Historian denies cough, denies shortness of breath. GI: Historian denies abdominal pain, denies nausea, denies vomiting. MUSCULOSKELETAL: Historian denies back pain, denies neck pain. SKIN: Negative skin review of systems, Historian denies skin changes, denies skin lesions. NEUROLOGIC: Historian denies headache, denies mental status changes. PSYCHIATRIC: Negative psychiatric review of systems, Historian denies anxiety. PAST MEDICAL HISTORY (15:32 EPIE) MEDICAL HISTORY: Notes: Anemia, Past medical history includes history of hypertension, Flu vaccine not up to date, Tetanus immunization up to date, Pneumococcal vaccine not up to date, Past medical history includes history of obesity. FEMALE SURGICAL HISTORY: Surgical history of tubal ligation. PSYCHIATRIC HISTORY: no history of suicidal ideations, No history of homicidal ideations, No previous psychiatric history. SOCIAL HISTORY: Lives at home, with family, Patient denies alcohol use, Patient denies drug use, Patient has no smoking history. FAMILY HISTORY: Notes: HTN, Renal Disease. PHYSICAL EXAM CONSTITUTIONAL: Vital signs reviewed, Patient afebrile, Patient appears non toxic, Patient appears pain free, Patient alert and oriented to person, place and time, NURSES NOTES REVIEWED. (16:00 AGRE) HEAD: Head exam included findings of head atraumatic, normocephalic. (16:00 AGRE) EYES: Eye exam included findings of eyelids normal to inspection, Extraocular muscles intact, Conjunctiva normal, Sclera normal. (16:00 AGRE) ENT: Ear exam included findings of, left external ear normal, right external ear normal, tympanic membrane injected on the left, tympanic membrane normal on the right, Nose exam normal, No turbinate mucosa discharge, ERYTHEMA AND SWELLING OF THE TURBINATES BILATERALLY, Pharynx exam normal, Uvula exam normal, Tonsil exam normal, Mouth exam normal, Maxillary sinuses with, tenderness bilaterally. (16:00 AGRE) NECK: Neck exam included findings of normal range of motion, no meningeal signs, no cervical adenopathy, no tenderness. (16:00 AGRE) RESPIRATORY CHEST: Respiratory exam included findings of no respiratory distress, Breath sounds clear, No wheezing, No rales, No rhonchi, Breath sounds not diminished, Chest exam included findings &a-1R&a+25V*p+0X*s5240U*c202B*c15G*c2P*p-0X&a-25V&a+1R Name: Dylan Good : 1970 F45 MedRec: [id number] AcctNum: [id number] Prepared: MonAug 23, 2016 16:15 by Interface Page 3 of 5 pMD [facility] EMERGENCY RECORD of chest movement symmetrical. (16:00 AGRE) CARDIOVASCULAR: Cardiovascular assessment normal, Cardiovascular exam included findings of heart rate regular rate and rhythm, Heart sounds normal. (16:01 AGRE) BACK: Back exam included findings of normal inspection, range of motion normal. (16:00 AGRE) UPPER EXTREMITY: Upper extremity exam included findings of inspection normal, Range of motion normal. (16:00 AGRE) LOWER EXTREMITY: Lower extremity exam included findings of inspection normal, Range of motion normal. (16:00 AGRE) NEURO: Neuro exam findings include patient oriented to person, place and time, Speech normal, Gait normal, Memory normal, Cranial nerves intact, no focal motor deficits. (16:00 AGRE) SKIN: Skin exam included findings of skin warm, dry, and normal in color. (16:00 AGRE) PSYCHIATRIC: Psychiatric exam normal, Normal affect. (16:00 AGRE) EVENTS TRANSFER: Triage to Emergency Triage. (MonAug 23, 2016 15:30 EPIE) Emergency Triage to Emergency Room -05. (15:31 EPIE) Removed from Emergency Emergency Room -05. (16:03 EPIE) O2SAT INTERPRETATION (16:01 AGRE) O2SAT: Continuous pulse oximetry, Oxygen saturation 98%, on room air, Oxygen saturation interpretation: Normal, No intervention required. DOCTOR NOTES (16:02 AGRE) TEXT: DISCUSSED WITH PATIENT FINDINGS ON EXAM, MANAGEMENT OF HER SINUS INFECTION, NEED FOR FOLLOW UP. SHE EXPRESSED UNDERSTANDING AND AGREEMENT. PATIENT STATUS: Patient has improved since arrival to emergency department. PATIENT PLAN: The patient will be discharged. PROBLEM LIST No recorded problems DIAGNOSIS (15:56 AGRE) FINAL: PRIMARY: SINUSITIS. DISPOSITION PATIENT: Disposition Type: Discharge, Disposition: *Discharge Home, Condition: Good. (15:56 AGRE) Patient left the department. (16:03 EPIE) INSTRUCTION (15:57 AGRE) DISCHARGE: SINUSITIS, ABX [place]. FOLLOWUP: Juliann PIERCE, [facility], [address] &a-1R&a+25V*p+0X*k5985X*c202B*c15G*c2P*p-0X&a-25V&a+1R Name: Dylan Good : 1970 F45 MedRec: [id number] AcctNum: [id number] Prepared: MonAug 23, 2016 16:15 by Interface Page 4 of 5 pMD [facility] EMERGENCY RECORD [facility] [id number], [phone]. SPECIAL: CONTNUE TAKING LOTS OF FLUIDS. TAKE MUCINEX DURING THE DAY AND TAKE NYQUIL NIGHT TIME COUGH AND COLD PREPARATION ONLY AT BEDTIME. FOLLOW UP WITH YOUR PHYSICIAN IF NOT BETTER IN 3 DAYS. SEE A PHYSICIAN SOONER IF WORSENING OR IF NEW SYMPTOMS DEVELOP. PRESCRIPTION (15:56 [facility]) Augmentin: TABLET : 875 mg-125 mg : ORAL : Quantity: 1 Unit: tab(s) Route: ORAL Schedule: every 12 hours Dispense: 20 Unit: tab(s) May substitute. Refills: No Refills . NOTES: No Refills. [facility] *DISCHARGE INSTRUCTIONS RECEIPT: Image captured from scanner. *SUPPLY CHARGE SHEET: Image captured from scanner. ADMIN (16:03 [facility]) DIGITAL SIGNATURE: MD Bedoya Andrea. Chambers: AGRE=MD Bedoya Andrea EPIE=MARISOL Olivo, Mariaa &a-1R&a+25V*p+0X*j3539R*c202B*c15G*c2P*p-0X&a-25V&a+1R Name: Dylan Good Claudy : 1970 F45 MedRec: [id number] AcctNum: [id number] Prepared: CamachoAug 23, 2016 16:15 by Interface Page 5 of 5 pMD MTDD
== END 2016-08-23 16:02 | disposition home or self-care (01) ==
LOC: NAV ERS 15:10
DX: J32.9 Chronic sinusitis, unspecified (principal); D64.9 Anemia, unspecified; I10 Essential (primary) hypertension
CPT/HCPCS: 99283

== ENCOUNTER 2016-09-23 18:45 | Emergency (ER) | payer OTHER | END 2016-09-23 19:59 | disposition home or self-care (01) | LOC: NAV ERS 18:45 | DX: J20.9 Acute bronchitis, unspecified (principal); T78.40XA Allergy, unspecified, initial encounter; I10 Essential (primary) hypertension; D64.9 Anemia, unspecified; Z79.899 Other long term (current) drug therapy | CPT/HCPCS: 99283 ==

== ENCOUNTER 2017-02-05 19:13 | Emergency (ER) | payer OTHER ==
[2017-02-05] MEDS ORDERED: Sodium Chloride 0.9% 1,000 ML ONE (19:32)
[2017-02-05 20:07] LABS: #Basophils 0.1 thou/uL (0.0-0.2); #Eosinphils 0.1 thou/uL (0.0-0.7); #Monocytes 0.6 thou/uL (0.11-0.59); #Neutrophils 3.4 thou/uL (1.40-6.50); %Basophils 1.1 % (0.0-1.0); %Eosinophils 0.9 % (0.0-10.0); %Lymphocytes 32.5 % (21.0-51.0); %Neutrophils 56.4 % (42.0-75.0); Hemoglobin 12.7 g/dL (12.0-16.0); Mean Corpuscular HGB CONC 30.2 g/dL (32.0-36.0); Mean Corpuscular Hemoglobin 25.4 pg (27.0-31.0); Mean Corpuscular Volume 84.1 fl (81.0-99.0); Mean Platelet Volume 10.8 fL (7.4-10.4); Platelet Count 246 thou/uL (130-400); RBC Distribution Width 15.4 % (11.5-14.5); Red Blood Cell (RBC) Count 5.01 mill/uL (4.20-5.40); White Blood Cell (WBC) Count 6.1 thou/uL (4.8-10.8)
[2017-02-05 20:13] LABS: ALT (SGPT) 16 U/L (8-55); AST (SGOT) 16 U/L (5-34); Albumin 4.3 g/dL (3.5-5.0); Alkaline Phosphatase 61 U/L (40-150); Anion Gap 16 mmol/L (10-20); BUN (Urea Nitrogen) 12 mg/dL (7.0-18.7); Bilirubin, Total 0.4 mg/dL (0.2-1.2); Calc. Creatinine Clearance 0 mL/min (70-130); Calcium 9.6 mg/dL (7.8-10.44); Carbon Dioxide 24 mmol/L (22-29); Chloride 104 mmol/L (98-107); Estimated GFR-MDRD 84; Globulin 3.3 g/dL (2.4-3.5); Glucose 103 mg/dL (70-105); Potassium 3.5 mmol/L (3.5-5.1); Protein, Total 7.6 g/dL (6.0-8.3); Sodium 140 mmol/L (136-145)
== END 2017-02-05 20:50 | disposition home or self-care (01) ==
LOC: NAV ERS 19:13
DX: R19.7 Diarrhea, unspecified (principal); R10.9 Unspecified abdominal pain; D64.9 Anemia, unspecified; I10 Essential (primary) hypertension; E66.9 Obesity, unspecified; Z79.899 Other long term (current) drug therapy
CPT/HCPCS: 80053; 85025; 96360; J7050

== ENCOUNTER 2017-04-09 07:04 | Emergency (ER) | payer OTHER, SELFPAY ==
[2017-04-09] MEDS ORDERED: Ibuprofen 800 MG TAB ONE (07:30)
== END 2017-04-09 07:39 | disposition home or self-care (01) ==
LOC: NAV ERS 07:04
DX: J06.9 Acute upper respiratory infection, unspecified (principal); D64.9 Anemia, unspecified; E66.9 Obesity, unspecified; I10 Essential (primary) hypertension; Z79.84 Long term (current) use of oral hypoglycemic drugs; Z79.899 Other long term (current) drug therapy
CPT/HCPCS: 99283

== ENCOUNTER 2017-08-01 08:26 | Emergency (ER) | payer SELFPAY | END 2017-08-01 09:17 | disposition home or self-care (01) | LOC: NAV ERS 08:26 | DX: J06.9 Acute upper respiratory infection, unspecified (principal); I10 Essential (primary) hypertension; D64.9 Anemia, unspecified; E66.9 Obesity, unspecified; Z79.84 Long term (current) use of oral hypoglycemic drugs; Z79.899 Other long term (current) drug therapy | CPT/HCPCS: 99283 ==

== ENCOUNTER 2018-02-11 12:26 | Emergency (ER) | payer SELFPAY ==
[2018-02-11 13:59] LABS: Bilirubin Negative (Negative); Blood, Urine Trace (Negative); Clarity Clear (Clear); Glucose, Urine (Dipstick) Negative (Negative); Leukocyte Trace (Negative); Nitrite Negative (Negative); Protein, Urine (Dipstick) Trace mg/dL (Neg-Trace)
[2018-02-11 14:10] LABS: Bacteria/HPF 1+ HPF (None Seen); RBC/HPF 0-3 HPF (0-3)
[2018-02-11] MEDS ORDERED: Ondansetron HCl/PF 4 MG/2 ML Vial ONE (14:46)
[2018-02-11] MEDS ORDERED: Sodium Chloride 0.9% 1,000 ML ONE (14:46)
[2018-02-11] MEDS ORDERED: Ketorolac Tromethamine 30 MG/ML VIAL ONE (14:46)
[2018-02-11 14:52] LABS: ALT (SGPT) 20 U/L (8-55); AST (SGOT) 17 U/L (5-34); Albumin 4.4 g/dL (3.5-5.0); Alkaline Phosphatase 76 U/L (40-150); Anion Gap 16 mmol/L (10-20); BUN (Urea Nitrogen) 16 mg/dL (7.0-18.7); Bilirubin, Total 0.4 mg/dL (0.2-1.2); Calc. Creatinine Clearance 0 mL/min (70-130); Calcium 10.2 mg/dL (7.8-10.44); Carbon Dioxide 25 mmol/L (22-29); Chloride 101 mmol/L (98-107); Estimated GFR-MDRD Greater than 90; Globulin 3.8 g/dL (2.4-3.5); Glucose 93 mg/dL (70-105); Potassium 3.5 mmol/L (3.5-5.1); Protein, Total 8.2 g/dL (6.0-8.3); Sodium 138 mmol/L (136-145)
[2018-02-11 14:55] LABS: #Basophils 0.1 thou/uL (0.0-0.2); #Lymphocytes 1.6 thou/uL (1.20-3.40); #Monocytes 0.5 thou/uL (0.11-0.59); #Neutrophils 3.7 thou/uL (1.40-6.50); %Basophils 1.6 % (0.0-1.0); %Eosinophils 0.6 % (0.0-10.0); %Lymphocytes 27.2 % (21.0-51.0); %Monocytes 8.8 % (0.0-10.0); %Neutrophils 61.9 % (42.0-75.0); Hemoglobin 13.9 g/dL (12.0-16.0); Mean Corpuscular HGB CONC 29.8 g/dL (32.0-36.0); Mean Corpuscular Hemoglobin 25.4 pg (27.0-31.0); Mean Corpuscular Volume 85.2 fL (78.0-98.0); Mean Platelet Volume 11.1 fL (7.4-10.4); Platelet Count 234 thou/uL (130-400); RBC Distribution Width 14.9 % (11.5-14.5); Red Blood Cell (RBC) Count 5.49 mill/uL (4.20-5.40)
[2018-02-11] MEDS ORDERED: cefTRIAXone\\ROCEPHIN 1 GM VIAL ONE (15:31)
--- NOTE | 2018-02-11 16:52 | CT ---
NONCONTRAST CT ABDOMEN AND PELVIS: Date: 02-11-18 History: Right flank pain for two days. FINDINGS: A reticular nodular density seen at the right lung base which may be related to infectious or inflamm atory process. There is atelectasis present at each lung base. Calcified granuloma are seen at the ri ght lung base. The liver, spleen, pancreas, bilateral adrenal glands, kidneys, partially distended urinary bladder, uterus, and adnexal structures demonstrate a grossly normal nonenhanced CT appearance. No renal or ureteral calculi are seen bilaterally. There is no hydronephrosis. Colonic diverticulosis is evident involving the descending and sigmoid colon. The appendix is visuali zed and normal in caliber. No free fluid, fluid collection or lymphadenopathy is seen on this nonenhanced CT scan examination. Mild degenerative change is seen in the lower thoracic spine. IMPRESSION: 1. Minimal reticulonodular densities posterior right lung base which may be related to infectious or inflammatory process. 2. No renal or ureteral calculi are seen bilaterally. 3. No CT evidence of appendicitis. 4. Colonic diverticulosis. POS: YANETH
== END 2018-02-11 16:15 | disposition home or self-care (01) ==
LOC: NAV ERS 12:26
DX: N12 Tubulo-interstitial nephritis, not specified as acute or chronic (principal); D50.9 Iron deficiency anemia, unspecified; I10 Essential (primary) hypertension; M10.9 Gout, unspecified; Z79.899 Other long term (current) drug therapy
CPT/HCPCS: 74176; 80053; 81003; 81015; 85025; 96361; 96365; 96375; J0696; J1885; J2405; J7050

== ENCOUNTER 2018-06-08 08:04 | Emergency (ER) | payer SELFPAY | END 2018-06-08 08:20 | disposition home or self-care (01) | LOC: NAV ERS 08:04 | DX: J06.9 Acute upper respiratory infection, unspecified (principal); R51 Headache; I10 Essential (primary) hypertension; Z79.84 Long term (current) use of oral hypoglycemic drugs; Z79.899 Other long term (current) drug therapy | CPT/HCPCS: 99283 ==

== ENCOUNTER 2018-08-03 13:11 | Emergency (ER) | payer BC, SELFPAY | END 2018-08-03 13:55 | disposition home or self-care (01) | LOC: NAV ERS 13:11 | DX: M17.12 Unilateral primary osteoarthritis, left knee (principal); D50.0 Iron deficiency anemia secondary to blood loss (chronic); I10 Essential (primary) hypertension; M10.9 Gout, unspecified; Z79.899 Other long term (current) drug therapy | CPT/HCPCS: 99283 ==

== ENCOUNTER 2019-03-16 14:24 | Emergency (ER) | payer BC | END 2019-03-16 16:50 | disposition home or self-care (01) | LOC: NAV ERS 14:24 | DX: M25.562 Pain in left knee (principal); G89.29 Other chronic pain; M10.9 Gout, unspecified; D50.9 Iron deficiency anemia, unspecified; I10 Essential (primary) hypertension; Z79.899 Other long term (current) drug therapy | CPT/HCPCS: 99283 ==

== ENCOUNTER 2019-08-28 11:51 | Emergency (ER) | payer BC ==
[2019-08-28 12:14] LABS: Bilirubin Negative (Negative); Blood, Urine Trace (Negative); Clarity Clear (Clear); Glucose, Urine (Dipstick) Negative (Negative); Leukocyte Negative (Negative); Nitrite Negative (Negative); Protein, Urine (Dipstick) Negative (Neg-Trace); Urobilinogen 0.2 mg/dL (Less than 2)
[2019-08-28 12:23] LABS: Pregnancy Test - Urine (BHCG) Negative (Negative)
[2019-08-28 12:24] LABS: Pregu Control Background? CLEAR/WHITE (CLR/WHITE); Pregu Control Bar Appear? YES (CONTROL BAR); Specific Gravity 1.025 (1.002-1.036)
[2019-08-28 12:31] LABS: #Basophils 0.1 thou/uL (0.0-0.2); #Eosinphils 0.2 thou/uL (0.0-0.7); #Lymphocytes 1.7 thou/uL (1.20-3.40); #Monocytes 0.3 thou/uL (0.11-0.59); #Neutrophils 2.3 thou/uL (1.40-6.50); %Basophils 1.6 % (0.0-1.0); %Eosinophils 4.3 % (0.0-10.0); %Lymphocytes 37.4 % (21.0-51.0); %Monocytes 7.3 % (0.0-10.0); %Neutrophils 49.4 % (42.0-75.0); Hemoglobin 12.8 g/dL (12.0-16.0); Mean Corpuscular HGB CONC 30.8 g/dL (32.0-36.0); Mean Corpuscular Hemoglobin 25.9 pg (27.0-31.0); Mean Corpuscular Volume 84.2 fL (78.0-98.0); Mean Platelet Volume 10.9 fL (7.4-10.4); Platelet Count 212 thou/uL (130-400); RBC Distribution Width 15.4 % (11.5-14.5); Red Blood Cell (RBC) Count 4.96 mill/uL (4.20-5.40); White Blood Cell (WBC) Count 4.7 thou/uL (4.8-10.8)
[2019-08-28 12:33] LABS: RBC/HPF 0-3 HPF (0-3); Squamous Epithelial 0-3 HPF (0-3); WBC/HPF 0-3 HPF (0-3)
[2019-08-28 12:34] LABS: Bacteria/HPF 1+ HPF (None Seen); Calcium Oxalate Crystals 1+ HPF (None Seen); Mucous/LPF Rare LPF (<2+)
[2019-08-28 12:46] LABS: ALT (SGPT) 13 U/L (8-55); AST (SGOT) 15 U/L (5-34); Albumin 4.5 g/dL (3.5-5.0); Alkaline Phosphatase 89 U/L (40-110); Anion Gap 16 mmol/L (10-20); BUN (Urea Nitrogen) 10 mg/dL (7.0-18.7); Bilirubin, Total 0.4 mg/dL (0.2-1.2); Calc. Creatinine Clearance 0 mL/min (70-130); Calcium 9.9 mg/dL (7.8-10.44); Carbon Dioxide 27 mmol/L (22-29); Chloride 102 mmol/L (98-107); Estimated GFR-MDRD Greater than 90; Globulin 3.5 g/dL (2.4-3.5); Glucose 113 mg/dL (70-105); Potassium 3.7 mmol/L (3.5-5.1); Sodium 141 mmol/L (136-145)
--- NOTE | 2019-08-28 13:23 | CT ---
CT [facility] Protocol: 08/28/2019 1:00 PM HISTORY: Left flank pain since Monday COMPARISON: 08/26/2018 TECHNIQUE: Multiple contiguous axial images were obtained and a CT of the abdomen and pelvis without IV contrast . Coronal and sagittal reformats were performed. FINDINGS: This examination is limited for the evaluation of solid organs and vascular structures due to the lac k of intravenous contrast. Lower Chest: within normal limits. Abdomen: Liver: within normal limits. Bile Ducts: Normal caliber. Gallbladder: No calcified gallstones. Normal caliber wall. Pancreas: within normal limits. Spleen: within normal limits. Adrenals: within normal limits. Kidneys: within normal limits. Pelvis: Reproductive Organs: No pelvic masses. Ureters: within normal limits. Bladder: within normal limits. Bowel: Normal caliber. Mesenteric Lymph Nodes: No enlarged mesenteric lymph nodes. Peritoneum: No ascites or free air, no fluid collection. Vessels: Normal caliber aorta Retroperitoneum: within normal limits. Abdominal Wall: within normal limits. Bones: Degenerative changes in the spine. IMPRESSION: No evidence of acute intraabdominal or pelvic abnormality.
== END 2019-08-28 13:40 | disposition home or self-care (01) ==
LOC: NAV ERS 11:51
DX: N23 Unspecified renal colic (principal); R31.9 Hematuria, unspecified; I10 Essential (primary) hypertension; D50.9 Iron deficiency anemia, unspecified; M10.9 Gout, unspecified; Z79.899 Other long term (current) drug therapy
CPT/HCPCS: 74176; 80053; 81003; 81015; 81025; 85025

== ENCOUNTER 2020-09-02 15:06 | Emergency (ER) | payer BC ==
[2020-09-02 16:52] LABS: Bilirubin Negative (Negative); Blood, Urine Negative (Negative); Clarity Clear (Clear); Glucose, Urine (Dipstick) Negative (Negative); Ketone, Urine Trace mg/dL (Negative); Leukocyte Negative (Negative); Nitrite Negative (Negative); Protein, Urine (Dipstick) Negative (Neg-Trace); Specific Gravity, Urine 1.025 (1.005-1.030); pH, Urine 6.5 (5.0-9.0)
== END 2020-09-02 17:11 | disposition home or self-care (01) ==
LOC: NAV ERS 15:06
DX: J01.10 Acute frontal sinusitis, unspecified (principal); J01.00 Acute maxillary sinusitis, unspecified; R35.0 Frequency of micturition; Z20.822 Contact with and (suspected) exposure to COVID-19; D50.9 Iron deficiency anemia, unspecified; I10 Essential (primary) hypertension; Z79.899 Other long term (current) drug therapy
CPT/HCPCS: 81003; 87635; 99283; U0003; U0005

== ENCOUNTER 2020-09-07 17:27 | Outpatient (CLI) | payer BC ==
[2020-09-08 05:15] LABS: SARS-CoV-2 PCR by NAA Not Detected (NotDetected)
== END 2020-09-07 17:28 | disposition home or self-care (01) ==
LOC: NAV LABSP 17:27
PROVIDERS: ATTEND Emergency Medicine Emergency Medical Services
DX: Z20.822 Contact with and (suspected) exposure to COVID-19 (principal)
CPT/HCPCS: 87635; U0003; U0005

== ENCOUNTER 2021-02-03 14:07 | Emergency (ER) | payer BC ==
[2021-02-03] MEDS ORDERED: Ketorolac Tromethamine 30 MG/ML VIAL ONE (14:29)
[2021-02-03] MEDS ORDERED: Dexamethasone 4 mg/ml Vial ONE (14:29)
[2021-02-03] MEDS ORDERED: Acetaminophen 500 MG TAB ONE (14:29)
== END 2021-02-03 14:39 | disposition home or self-care (01) ==
LOC: NAV ERS 14:07
DX: J06.9 Acute upper respiratory infection, unspecified (principal); M79.10 Myalgia, unspecified site; I10 Essential (primary) hypertension; Z79.899 Other long term (current) drug therapy
CPT/HCPCS: 96372; 99283; J1100; J1885